=== PATIENT | male | born 1975 | race Asian ===

== ENCOUNTER 2023-04-07 19:14 | Emergency (ER) | payer OTHER ==
[~2023-04-07] VITALS: Ht 162.6 cm; Wt 66.2 kg
[2023-04-07] MEDS ORDERED: MUPIROCIN15 GM TOP (23:38)
[2023-04-07] MEDS ORDERED: CLEOCIN HCL300 MG PO (23:38)
== END 2023-04-08 00:05 | disposition home or self-care (01) ==
LOC: ER 19:14
DX: S01.521A Laceration with foreign body of lip, initial encounter (principal); W19.XXXA Unspecified fall, initial encounter; Y93.89 Activity, other specified; Y92.59 Other trade areas as the place of occurrence of the external cause